=== PATIENT | female | born 1985 | race Caucasian/White ===

== ENCOUNTER 2019-10-24 09:10 | Observation (INO) | payer OTHER ==
[2019-10-24] MEDS ORDERED: PREN1TAB80 PO (09:51)
== END 2019-10-24 11:40 | disposition home or self-care (01) ==
LOC: 4S 09:10
PROVIDERS: ADMIT Obstetrics & Gynecology; ATTEND Obstetrics & Gynecology
DX: O26.893 Other specified pregnancy related conditions, third trimester (principal); Z3A.37 37 weeks gestation of pregnancy
CPT/HCPCS: 76811; G0378

== ENCOUNTER 2019-10-24 12:08 | Inpatient (IN) | payer OTHER ==
[~2019-10-24] VITALS: Ht 165 cm; Wt 86.2 kg
[~2019-10-24 12:08] MED LIST: PREN1TAB80 PO
[2019-10-29] MEDS ORDERED: RINGERS SOLUTION,LACTATED 1,000 ML IV PRN (12:46)
[2019-10-29] MEDS ORDERED: LIDOCAINE/PF 1% 30 ML VIAL INJ PRN (13:00)
[2019-10-29] MEDS ORDERED: METOCLOPRAMIDE HCL 5 MG/ML 2 ML VIAL IVP PRN (13:00)
[2019-10-29] MEDS ORDERED: CITRIC ACID/SODIUM CITRATE 30 ML SOLUTION UDCUP PO PRN (13:00)
[2019-10-29 13:22] VITALS: BP 126/79
[2019-10-29 13:43] LABS: BASOPHILS % (AUTO) 0.5 % (0.0-2.0); EOSINOPHILS % (AUTO) 0.6 % (1.0-6.0); HEMATOCRIT 36.6 % (36-46); HEMOGLOBIN 12.4 g/dL (12.0-16.0); LYMPHOCYTES # (AUTO) 2.5 K/uL (1.0-4.8); LYMPHOCYTES % (AUTO) 29.7 % (22.0-44.0); MEAN CORPUSCULAR HEMOGLOBIN 28.9 pg (26.0-34.0); MEAN CORPUSCULAR HGB CONC 33.9 G/dL (31.0-37.0); MEAN CORPUSCULAR VOLUME 85 fL (80-100); MONOCYTES # (AUTO) 0.6 K/uL (0.1-1.0); MONOCYTES % (AUTO) 7.1 % (2.0-9.0); NEUTROPHILS # (AUTO) 5.2 K/uL (1.8-7.7); NEUTROPHILS % (AUTO) 62.1 % (40.0-70.0); PLATELET COUNT (AUTO) 172 K/uL (150-450); RED BLOOD CELL COUNT(AUTO) 4.29 MIL/uL (4.00-5.20)
[2019-10-29] MEDS: RINGERS SOLUTION,LACTATED 1,000 ML IV SCH ×2 (13:44→20:11)
[2019-10-29] MEDS ORDERED: MISOPROSTOL 50 MCG TABLET PO SCH ×2 (15:00→16:00)
[2019-10-29] MEDS ORDERED: OXYTOCIN 30 UNITS/LACT RINGERS 500 ML IV PRN (17:45)
[2019-10-29] MEDS ORDERED: OXYGEN THERAPY IH SCH (20:00)
[2019-10-30] MEDS ORDERED: ONDANSETRON HCL 4 MG/2 ML VIAL IVP PRN ×2 (00:30→04:00)
[2019-10-30] MEDS: FentaNYL CITRATE-PF 100 MCG/2 ML VIAL IVP PRN ×3 (01:45→02:59)
[2019-10-30] MEDS ORDERED: ROPIVACAINE HCL/PF 0.2% 100 ML ED ONE (03:18)
[2019-10-30] MEDS ORDERED: ROPIVACAINE HCL/PF 0.2% 100 ML ED PRN (04:00)
[2019-10-30] MEDS ORDERED: NALBUPHINE HCL 10 MG/ML VIAL IVP PRN (04:00)
[2019-10-30] MEDS ORDERED: DiphenhydrAMINE HCL 50 MG/ML VIAL IVP PRN (04:00)
[2019-10-30] MEDS: RINGERS SOLUTION,LACTATED 1,000 ML IV SCH (04:08)
[2019-10-30] MEDS ORDERED: OXYTOCIN 30 UNITS/LACT RINGERS 500 ML IV ONE (07:32)
[2019-10-30] MEDS ORDERED: LANOLIN 7 GM OINTMENT TP PRN (07:45)
[2019-10-30] MEDS ORDERED: LIDOCAINE/PF 1% 30 ML VIAL INJ PRN (07:45)
[2019-10-30] MEDS ORDERED: BENZOCAINE 20%/MENTHOL 56 GM SPRAY CANISTER TP PRN (07:45)
[2019-10-30] MEDS ORDERED: OxyCODONE HCL/ACETAMINOPHEN 5-325 MG TABLET PO PRN ×2 (07:45)
[2019-10-30] MEDS ORDERED: GLYCERIN/WITCH HAZEL LEAF 40 PADS JAR TP PRN (07:45)
[2019-10-30] MEDS: IBUPROFEN 800 MG TABLET PO PRN (14:57)
[2019-10-30 17:02] LABS: HEMATOCRIT 33.9 % (36-46); HEMOGLOBIN 11.4 g/dL (12.0-16.0); MEAN CORPUSCULAR HEMOGLOBIN 28.8 pg (26.0-34.0); MEAN CORPUSCULAR HGB CONC 33.7 G/dL (31.0-37.0); MEAN CORPUSCULAR VOLUME 85 fL (80-100); NEUTROPHILS % (AUTO) 76.4 % (40.0-70.0); PLATELET COUNT (AUTO)-OB 173 K/uL (150-450); RED BLOOD CELL COUNT(AUTO) 3.97 MIL/uL (4.00-5.20); RED CELL DISTRIBUTION WIDTH 13.9 % (11.5-14.5)
[2019-10-30 17:03] LABS: BASOPHILS % (AUTO) 0.2 % (0.0-2.0); EOSINOPHILS % (AUTO) 0.1 % (1.0-6.0); LYMPHOCYTES # (AUTO) 3.7 K/uL (1.0-4.8); LYMPHOCYTES % (AUTO) 18.3 % (22.0-44.0); NEUTROPHILS # (AUTO) 15.4 K/uL (1.8-7.7)
[2019-10-30] MEDS: MAGNESIUM HYDROXIDE SUSPENSION 30 ML UDCUP PO PRN (20:35)
[2019-10-31] MEDS: IBUPROFEN 800 MG TABLET PO PRN ×2 (03:31→08:50)
[2019-10-31 06:52] LABS: BASOPHILS % (AUTO) 0.2 % (0.0-2.0); EOSINOPHILS % (AUTO) 0.3 % (1.0-6.0); HEMATOCRIT 29.6 % (36-46); HEMOGLOBIN 10.2 g/dL (12.0-16.0); LYMPHOCYTES # (AUTO) 4.6 K/uL (1.0-4.8); MEAN CORPUSCULAR HEMOGLOBIN 29.4 pg (26.0-34.0); MEAN CORPUSCULAR HGB CONC 34.3 G/dL (31.0-37.0); MEAN CORPUSCULAR VOLUME 86 fL (80-100); MONOCYTES # (AUTO) 0.8 K/uL (0.1-1.0); MONOCYTES % (AUTO) 4.8 % (2.0-9.0); NEUTROPHILS # (AUTO) 11.5 K/uL (1.8-7.7); NEUTROPHILS % (AUTO) 67.7 % (40.0-70.0); PLATELET COUNT (AUTO)-OB 133 K/uL (150-450); RED BLOOD CELL COUNT(AUTO) 3.46 MIL/uL (4.00-5.20); RED CELL DISTRIBUTION WIDTH 14.1 % (11.5-14.5)
[2019-10-31] MEDS: MAGNESIUM HYDROXIDE SUSPENSION 30 ML UDCUP PO PRN (08:49)
[2019-10-31] MEDS ORDERED: ACET-66 PO (09:09)
[2019-10-31] MEDS ORDERED: IBUP-2070 PO (09:10)
[2019-10-31] MEDS ORDERED: DOCU-275 PO (09:11)
== END 2019-10-31 12:50 | disposition home or self-care (01) | DRG 807 ==
LOC: OBSVTOIN 10-29 12:46 → 4S 10-29 12:46
PROVIDERS: ADMIT Obstetrics & Gynecology Obstetrics; ATTEND Obstetrics & Gynecology Obstetrics
PROC: 10E0XZZ Delivery of Products of Conception, External Approach (ICD-10-PCS; principal; 2019-10-30)
PROC: 0W8NXZZ Division of Female Perineum, External Approach (ICD-10-PCS; 2019-10-30)
PROC: 3E0R3BZ Introduction of Anesthetic Agent into Spinal Canal, Percutaneous Approach (ICD-10-PCS; 2019-10-30)
PROC: 00HU33Z Insertion of Infusion Device into Spinal Canal, Percutaneous Approach (ICD-10-PCS; 2019-10-30)
DX: O80 Encounter for full-term uncomplicated delivery (principal); Z37.0 Single live birth; Z3A.39 39 weeks gestation of pregnancy; Z20.828 Contact with and (suspected) exposure to other viral communicable diseases
CPT/HCPCS: J2405; J2590; J2765; J2795; J3010; J7120